=== PATIENT | female | born 1950 | race Caucasian/White ===

== ENCOUNTER 2017-10-22 13:09 | Outpatient (CLI) | payer MEDICARE, MEDICAID | END 2017-10-22 13:10 | disposition home or self-care (01) | LOC: BICMAMMO 13:09 | PROVIDERS: ATTEND Family Medicine | DX: Z12.31 Encounter for screening mammogram for malignant neoplasm of breast (principal) | CPT/HCPCS: 77063; 77067 ==

== ENCOUNTER 2018-11-03 09:17 | Outpatient (CLI) | payer MEDICARE ==
--- NOTE | 2018-11-03 10:00 | MMO ---
Bilateral MAMMO Bilat Screen [facility]. CLINICAL HISTORY: Patient is 68 years old and is seen for screening. The patient has no family history of breast cancer. The patient has no personal history of cancer. VIEWS: The views performed were: bilateral craniocaudal with tomosynthesis and bilateral mediolateral oblique with tomosynthesis. FILMS COMPARED: The present examination has been compared to a prior imaging study performed at [facility] on 10/22/2017. MAMMOGRAM FINDINGS: There are scattered fibroglandular densities. There are benign appearing calcifications seen in both breasts. There are no suspicious masses, suspicious calcifications, or new areas of architectural distortion. IMPRESSION: THERE IS NO MAMMOGRAPHIC EVIDENCE OF MALIGNANCY. A ROUTINE FOLLOW-UP MAMMOGRAM IN 1 YEAR IS RECOMMENDED. THE RESULTS OF THIS EXAM WERE SENT TO THE PATIENT. ACR BI-RADS Category 2 - Benign finding MAMMOGRAPHY NOTE: 1. A negative mammogram report should not delay a biopsy if a dominant of clinically suspicious mass is present. 2. Approximately 10% to 15% of breast cancers are not detected by mammography. 3. Adenosis and dense breasts may obscure an underlying neoplasm.
== END 2018-11-03 09:18 | disposition home or self-care (01) ==
LOC: BICMAMMO 09:17
PROVIDERS: ATTEND Family Medicine
DX: Z12.31 Encounter for screening mammogram for malignant neoplasm of breast (principal)
CPT/HCPCS: 77063; 77067

== ENCOUNTER 2019-07-27 09:04 | Outpatient (CLI) | payer MEDICARE ==
--- NOTE | 2019-07-27 09:44 | ULT ---
RIGHT UPPER QUADRANT ULTRASOUND: HISTORY: Elevated LFTs. FINDINGS: The liver demonstrates increased echogenicity consistent with fatty infiltration without focal mass o r intrahepatic ductal dilatation. There is a 2.3 cm shadowing calculus in the gallbladder without ga llbladder wall thickening or pericholecystic fluid. The common duct measures 4 mm in diameter. The right kidney and visualized portions of the pancreas are unremarkable. No free fluid is seen in the Morison's pouch. IMPRESSION: 1. Fatty liver. 2. Cholelithiasis. POS: OFF
== END 2019-07-27 09:05 | disposition home or self-care (01) ==
LOC: BICULT 09:04
PROVIDERS: ATTEND Family Medicine
DX: R74.0 Nonspecific elevation of levels of transaminase and lactic acid dehydrogenase [LDH] (principal); K76.0 Fatty (change of) liver, not elsewhere classified; K80.20 Calculus of gallbladder without cholecystitis without obstruction
CPT/HCPCS: 76705

== ENCOUNTER 2019-09-03 10:37 | Day surgery (SDC) | payer MEDICARE ==
[2019-09-02 10:37] VITALS: BMI 30.7
[2019-09-03] MEDS ORDERED: PHENYLEPHRINE-NS 100 MCG/ML 10 ML SYRINGE ONE (10:42)
[2019-09-03] MEDS ORDERED: Glycopyrrolate 0.2 MG/ML 5 ML SYRINGE ONE (10:42)
[2019-09-03] MEDS ORDERED: PROPOFOL 200 MG/20 ML VIAL ONE (10:42)
[2019-09-03] MEDS ORDERED: Dexamethasone 20 MG/5 ML VIAL ONE (10:42)
[2019-09-03] MEDS ORDERED: Rocuronium Bromide 10 MG/ML (10ML VIAL) ONE (10:42)
[2019-09-03] MEDS ORDERED: Esmolol 100 MG/10 ML VIAL ONE ×2 (10:42→14:17)
[2019-09-03] MEDS ORDERED: Lidocaine 1% PF 5 ML VIAL ONE (10:42)
[2019-09-03] MEDS ORDERED: Ondansetron PF 4 MG/2 ML Vial ONE (10:42)
[2019-09-03] MEDS ORDERED: EPHEDRINE 25 MG/5 ML SYRINGE ONE (10:42)
[2019-09-03] MEDS ORDERED: Acetaminophen 500 MG TAB ONE (10:59)
[2019-09-03] MEDS ORDERED: Ketorolac Tromethamine 30 MG/ML VIAL ONE (11:04)
[2019-09-03] MEDS ORDERED: Levofloxacin 500 mg/D5W 100 ml Premix Bag ONE (11:04)
[2019-09-03 11:28] LABS: #Basophils 0.1 thou/uL (0.0-0.2); #Eosinphils 0.1 thou/uL (0.0-0.7); #Lymphocytes 1.6 thou/uL (1.20-3.40); #Monocytes 0.4 thou/uL (0.11-0.59); #Neutrophils 3.1 thou/uL (1.40-6.50); %Eosinophils 1.8 % (0.0-10.0); %Lymphocytes 30.8 % (21.0-51.0); %Monocytes 8.1 % (0.0-10.0); %Neutrophils 58.3 % (42.0-75.0); Hemoglobin 14.3 g/dL (12.0-16.0); Mean Corpuscular HGB CONC 34.2 g/dL (32.0-36.0); Mean Corpuscular Hemoglobin 29.3 pg (27.0-31.0); Mean Corpuscular Volume 85.9 fL (78.0-98.0); Mean Platelet Volume 8.6 fL (7.4-10.4); Platelet Count 150 thou/uL (130-400); RBC Distribution Width 12.9 % (11.5-14.5); Red Blood Cell (RBC) Count 4.86 mill/uL (4.20-5.40); White Blood Cell (WBC) Count 5.3 thou/uL (4.8-10.8)
[2019-09-03] MEDS ORDERED: Lidocaine 1% w/Epinephrine 1:100K 20 ML VIAL ONE (11:45)
[2019-09-03] MEDS ORDERED: Bupivacaine 0.25% HCL 30 ML VIAL ONE (11:45)
[2019-09-03 11:56] LABS: ALT (SGPT) 65 U/L (8-55); AST (SGOT) 50 U/L (5-34); Albumin 4.1 g/dL (3.4-4.8); Alkaline Phosphatase 93 U/L (40-110); Anion Gap 12 mmol/L (10-20); BUN (Urea Nitrogen) 14 mg/dL (9.8-20.1); Bilirubin, Total 0.8 mg/dL (0.2-1.2); Calc. Creatinine Clearance 94 mL/min (70-130); Calcium 9.4 mg/dL (7.8-10.44); Carbon Dioxide 26 mmol/L (23-31); Chloride 105 mmol/L (98-107); Estimated GFR-MDRD 74; Globulin 3.3 g/dL (2.4-3.5); Glucose 97 mg/dL (80-115); Potassium 4.1 mmol/L (3.5-5.1); Protein, Total 7.4 g/dL (6.0-8.3); Sodium 139 mmol/L (136-145)
--- NOTE | 2019-09-03 12:10 | RAD ---
PORTABLE CHEST: History: Pre-operative evaluation. FINDINGS: The lung cast are clear. No infiltrate or vascular congestion. Heart size is normal. Degenerative changes at both shoulders. IMPRESSION: No acute process. POS: [facility]
[2019-09-03] MEDS ORDERED: Fentanyl 250 MCG/5 ML VIAL ONE (12:24)
[2019-09-03] MEDS ORDERED: SUGAMMADEX SODIUM 500 MG/5 ML VIAL ONE (14:32)
[2019-09-03] MEDS ORDERED: SUGAMMADEX SODIUM 200 MG/2 ML VIAL ONE (14:34)
--- NOTE | 2019-09-05 21:34 | OP ---
DATE OF PROCEDURE: 09/03/2019 PREOPERATIVE DIAGNOSIS: Symptomatic cholelithiasis. POSTOPERATIVE DIAGNOSIS: Symptomatic cholelithiasis. PROCEDURE PERFORMED: Laparoscopic cholecystectomy. ANESTHESIA: General endotracheal. INDICATIONS FOR PROCEDURE: The patient is a 69-year-old white female. Recent gallbladder ultrasound documents a large gallstone present within her gallbladder. She has taken to the operative room at this time for laparoscopic cholecystectomy. DESCRIPTION OF PROCEDURE: Informed consent was obtained. The patient was taken to the operating room where general endotracheal anesthesia was obtained with the patient in the supine position. The abdomen was prepped with Betadine and draped in the usual sterile fashion. 0.25% Marcaine with epinephrine was infiltrated below the umbilicus and a 10 mm infraumbilical incision was created. A Veress needle was passed through this incision into the peritoneal cavity. A pneumoperitoneum was established using carbon dioxide up to a pressure of 15 mmHg. Local anesthetic was infiltrated and 3 additional 5 mm right upper quadrant incisions were created. Through the mid incision, a 5 mm port was passed into the peritoneal cavity. The camera was passed through this port and under direct vision, an 11 port was passed through the infraumbilical incision. The camera was replaced through this port, and under direct vision, 2 additional 5 mm ports were passed through the incisions already created. The gallbladder was grasped and retracted in a cephalad direction. Minimal adhesions were bluntly stripped away from the apex of the gallbladder, and the apex was retracted laterally and inferiorly. Careful dissection was carried out to the apex of the gallbladder to identify the cystic duct and cystic artery. These were each carefully dissected circumferentially. The duct was of normal caliber. Both the duct and the artery were divided between clips, leaving 2 on the side to remain within the abdomen. The gallbladder was then dissected out of the gallbladder fossa using electrocautery and removed through the infraumbilical port site. The fascia was closed with 0 Vicryl suture and a GraNee needle. The right upper quadrant was inspected and irrigated. All irrigant was aspirated. All ports and instruments were removed under direct vision. Pneumoperitoneum was carefully evacuated. Additional local anesthetic was infiltrated into each port site. The skin edges were approximated with 4-0 Monocryl subcuticular sutures, and Dermabond was placed externally. There were no complications. The patient tolerated the procedure well and was taken to the recovery room in stable condition. FINDINGS: The patient had evidence of chronic cholecystitis with significant scarring around the apex of the gallbladder and pericholecystic adhesions. The duct was small and noninflamed when it was fully dissected. There were no complications. Blood loss was negligible. The patient tolerated the procedure well and was taken to recovery in stable condition. Job ID: [id number]
== END 2019-09-03 16:35 | disposition home or self-care (01) ==
LOC: SDC 10:37
PROVIDERS: ATTEND Specialist
PROC: 0FT44ZZ Resection of Gallbladder, Percutaneous Endoscopic Approach (ICD-10-PCS; principal; 2019-09-03)
DX: K80.10 Calculus of gallbladder with chronic cholecystitis without obstruction (principal); K82.8 Other specified diseases of gallbladder; Z79.899 Other long term (current) drug therapy; Z88.0 Allergy status to penicillin
CPT/HCPCS: 71045; 80053; 85025; 88304; 93005; 93010; J1100; J1885; J1956; J2001; J2405; J2704; J3010; S0020

== ENCOUNTER 2021-05-28 09:04 | Outpatient (CLI) | payer MEDICARE, MEDICAID | END 2021-05-28 09:05 | disposition home or self-care (01) | LOC: BICMAMMO 09:04 | PROVIDERS: ATTEND Family Medicine | DX: Z12.31 Encounter for screening mammogram for malignant neoplasm of breast (principal) | CPT/HCPCS: 77063; 77067 ==

== ENCOUNTER 2022-02-14 09:52 | Outpatient (CLI) | payer MEDICARE, MEDICAID ==
[2022-02-14 12:17] LABS: #Eosinphils 0.2 10x3/uL (0.0-0.5); #Monocytes 0.4 10x3/uL (0.0-1.1); #Neutrophils 3.1 10x3/uL (1.5-8.4); %Basophils 0.4 % (0.0-2.0); %Eosinophils 2.8 % (0.0-6.0); %Lymphocytes 32.4 % (18.0-47.0); %Monocytes 7.9 % (0.0-10.0); %Neutrophils 56.1 % (40.0-75.0); Hemoglobin 13.6 g/dL (12.0-15.5); Mean Corpuscular HGB CONC 32.3 g/dL (32.0-36.0); Mean Corpuscular Hemoglobin 28.3 pg (27.0-33.0); Mean Corpuscular Volume 87.5 fl (81.6-98.3); Mean Platelet Volume 10.9 fl (7.4-10.4); Platelet Count 189 10x3/uL (150-450); RBC Distribution Width 13.5 % (11.5-14.5); Red Blood Cell (RBC) Count 4.81 10x6/uL (3.90-5.03); White Blood Cell (WBC) Count 5.4 10x3/uL (3.5-10.5)
[2022-02-14 12:19] LABS: INR-International Normal Ratio 0.9; Prothrombin Time 9.9 sec (9.5-12.1)
[2022-02-14 12:25] LABS: Anion Gap 14 mmol/L (10-20); BUN (Urea Nitrogen) 8 mg/dL (9.8-20.1); Calc. Creatinine Clearance 0 mL/min (70-130); Calcium 9.2 mg/dL (7.8-10.44); Carbon Dioxide 25 mmol/L (23-31); Chloride 107 mmol/L (98-107); Estimated GFR 78; Glucose 73 mg/dL (83-110); Potassium 4.5 mmol/L (3.5-5.1); Sodium 141 mmol/L (136-145)
== END 2022-02-14 09:53 | disposition home or self-care (01) ==
LOC: LABBT 09:52
PROVIDERS: ATTEND Orthopaedic Surgery
DX: Z01.818 Encounter for other preprocedural examination (principal); M17.11 Unilateral primary osteoarthritis, right knee; Z20.822 Contact with and (suspected) exposure to COVID-19
CPT/HCPCS: 80048; 85025; 85610; 87081; 87811; 93005; 93010

== ENCOUNTER 2022-02-19 05:36 | Observation (INO) | payer OTHER, MEDICAID ==
[2022-02-15 14:07] VITALS: BMI 30.7
[2022-02-19] MEDS ORDERED: Sodium Chloride 0.9% 100 ML ONE ×2 (06:02→06:51)
[2022-02-19] MEDS ORDERED: Vancomycin (BATCH) 1.5 GRAM/300 ML BAG ONE (06:02)
[2022-02-19] MEDS ORDERED: Tranexamic Acid 1,000 MG/10 ML VIAL ONE (06:02)
[2022-02-19] MEDS ORDERED: fentaNYL Citrate/PF 100 MCG/2 ML SYRINGE ONE (06:13)
[2022-02-19] MEDS ORDERED: Meperidine HCl/PF 25 MG/ML VIAL SLOW IVP PRN ×2 (06:40)
[2022-02-19] MEDS ORDERED: Ondansetron HCl/PF 4 MG/2 ML Vial IVP PRN (06:40)
[2022-02-19] MEDS ORDERED: Promethazine HCl 25 MG/ML VIAL IM PRN ×3 (06:40→07:30)
[2022-02-19] MEDS ORDERED: Promethazine HCl 25 MG/ML VIAL IVPB PRN (06:40)
[2022-02-19] MEDS ORDERED: HYDROmorphone 2 MG/ML VIAL SLOW IVP PRN (06:40)
[2022-02-19] MEDS ORDERED: Midazolam HCl 2 mg/2 ml Vial ONE (06:45)
[2022-02-19] MEDS ORDERED: Fentanyl 100 MCG/2 ML VIAL ONE ×3 (06:45→09:24)
[2022-02-19] MEDS ORDERED: Bupivacaine PF 0.5% 30 ML VIAL ONE (06:51)
[2022-02-19] MEDS ORDERED: CEFAZOLIN 2 GM VIAL ONE (06:51)
[2022-02-19] MEDS ORDERED: Acetaminophen 325 MG TAB PO PRN (06:57)
[2022-02-19] MEDS ORDERED: HYDROcodone/Acetaminophen 10/325 mg Tablet PO PRN ×3 (06:57→07:30)
[2022-02-19] MEDS ORDERED: diphenhydrAMINE 25 MG CAP PO PRN (06:57)
[2022-02-19] MEDS ORDERED: Zolpidem Tartrate 5 MG TAB PO PRN ×2 (06:57→07:30)
[2022-02-19] MEDS ORDERED: Ondansetron PF 4 MG/2 ML Vial IVP PRN ×2 (06:57→07:30)
[2022-02-19] MEDS ORDERED: Fentanyl 100 MCG/2 ML VIAL SLOW IVP PRN ×2 (06:57)
[2022-02-19] MEDS ORDERED: ceFAZolin 2 GM/Dextrose 50 ML 2 GM in Premix Bag 1 BAG IVPB SCH (07:00)
[2022-02-19] MEDS ORDERED: PROPOFOL 200 MG/20 ML VIAL ONE (07:02)
[2022-02-19] MEDS ORDERED: Ondansetron PF 4 MG/2 ML Vial ONE (07:02)
[2022-02-19] MEDS ORDERED: Dexamethasone 20 MG/5 ML VIAL ONE (07:02)
[2022-02-19] MEDS ORDERED: Lidocaine 1% PF 5 ML VIAL ONE (07:02)
[2022-02-19] MEDS ORDERED: Ketorolac Tromethamine 30 MG/ML VIAL ONE (07:02)
[2022-02-19] MEDS ORDERED: Bupivacaine HCl 0.5%/Epinephrine 1:200,000/PF 30 ml Vial ONE ×2 (07:02)
[2022-02-19] MEDS ORDERED: Fentanyl 100 MCG/2 ML VIAL IV PRN (07:16)
[2022-02-19] MEDS ORDERED: traMADol HCl 50 MG TAB PO PRN ×2 (07:30)
[2022-02-19] MEDS ORDERED: Ropivacaine 0.2% 550 ML 550 ML NERVE BLCK SCH (07:30)
[2022-02-19] MEDS ORDERED: Non-Formulary Item 1 EACH (Cholecalciferol (Vitamin D3) [Vitamin D] 1000 UNIT Capsule) PO SCH (09:00)
[2022-02-19] MEDS ORDERED: HYDROmorphone 0.5 MG/0.5 ML SYRINGE ONE (09:04)
[2022-02-19] MEDS: Ferrous Gluconate 324 MG TAB PO SCH ×2 (10:21→20:04)
[2022-02-19] MEDS: Cholecalciferol 1,000 UNITS (25 MCG) TAB PO SCH (10:21)
[2022-02-19] MEDS: Aspirin 81 mg Enteric Coated Tablet PO SCH ×2 (10:21→20:04)
[2022-02-19] MEDS: Multivitamin W/ Minerals 1 TAB PO SCH (10:21)
[2022-02-19] MEDS: Senokot S 8.6-50 MG TAB PO SCH ×2 (10:21→20:04)
[2022-02-19] MEDS: Sodium Chloride 0.9% 1,000 ML IV SCH ×3 (10:22→21:09)
[2022-02-19] MEDS: Ketorolac Tromethamine 30 MG/ML VIAL IVP SCH ×2 (11:01→17:35)
[2022-02-19] MEDS: CEFAZOLIN 2 GM in Sodium Chloride 0.9% 100 ML IVPB SCH ×2 (13:23→20:56)
[2022-02-19] MEDS: HYDROcodone/Acetaminophen 10/325 mg Tablet PO PRN (13:27)
[2022-02-19] MEDS ORDERED: Ketorolac Tromethamine 30 MG/ML VIAL IVP SCH (14:00)
[2022-02-20] MEDS: Ketorolac Tromethamine 30 MG/ML VIAL IVP SCH ×2 (00:33→07:10)
[2022-02-20 08:46] VITALS: BP 109/72; TEMP 97.6
[2022-02-20] MEDS: Ferrous Gluconate 324 MG TAB PO SCH (08:55)
[2022-02-20] MEDS: Senokot S 8.6-50 MG TAB PO SCH (08:55)
[2022-02-20] MEDS: Multivitamin W/ Minerals 1 TAB PO SCH (08:55)
[2022-02-20] MEDS: Aspirin 81 mg Enteric Coated Tablet PO SCH (08:56)
[2022-02-20] MEDS: Sodium Chloride 0.9% 1,000 ML IV SCH (08:56)
[2022-02-20] MEDS: Cholecalciferol 1,000 UNITS (25 MCG) TAB PO SCH (08:56)
[2022-02-20] MEDS: HYDROcodone/Acetaminophen 10/325 mg Tablet PO PRN (08:57)
[2022-02-20 09:55] LABS: Hemoglobin 11.4 g/dL (12.0-16.0); Mean Corpuscular HGB CONC 32.4 g/dL (32.0-36.0); Mean Corpuscular Hemoglobin 29.5 pg (27.0-31.0); Mean Corpuscular Volume 90.9 fL (78.0-98.0); Mean Platelet Volume 6.2 fL (7.4-10.4); Platelet Count 153 thou/uL (130-400); RBC Distribution Width 12.6 % (11.5-14.5); Red Blood Cell (RBC) Count 3.86 mill/uL (4.20-5.40); White Blood Cell (WBC) Count 9.4 thou/uL (4.8-10.8)
== END 2022-02-20 11:00 | disposition home or self-care (01) ==
LOC: SDC 05:36 → SJJU 06:57 → SDC 17:14
PROVIDERS: ADMIT Orthopaedic Surgery; ATTEND Orthopaedic Surgery
PROC: 0SRC0J9 Replacement of Right Knee Joint with Synthetic Substitute, Cemented, Open Approach (ICD-10-PCS; principal; 2022-02-19)
PROC: 8E0YXBZ Computer Assisted Procedure of Lower Extremity (ICD-10-PCS; 2022-02-19)
PROC: 3E0T3BZ Introduction of Anesthetic Agent into Peripheral Nerves and Plexi, Percutaneous Approach (ICD-10-PCS; 2022-02-19)
DX: M17.11 Unilateral primary osteoarthritis, right knee (principal); Z88.0 Allergy status to penicillin
CPT/HCPCS: 20985; 27447; 64448; 73560; 85027; 97110 ×2; 97116 ×2; 97530; A4306; J3370; 36415; C1713; C1776; J0690; J1100; J1170; J1885; J2250; J2405; J2704; J2795; J3010; J3490; J7050; S0020

== ENCOUNTER 2022-05-29 10:48 | Outpatient (CLI) | payer OTHER, MEDICAID | END 2022-05-29 10:49 | disposition home or self-care (01) | LOC: BICMAMMO 10:48 | PROVIDERS: ATTEND Family Medicine | DX: Z12.31 Encounter for screening mammogram for malignant neoplasm of breast (principal) | CPT/HCPCS: 77063; 77067 ==

== ENCOUNTER 2023-06-16 10:59 | Outpatient (CLI) | payer MEDICAID, MEDICARE, OTHER | END 2023-06-16 11:00 | disposition home or self-care (01) | LOC: BICMAMMO 10:59 | PROVIDERS: ATTEND Family Medicine | DX: Z12.31 Encounter for screening mammogram for malignant neoplasm of breast (principal) | CPT/HCPCS: 77063; 77067 ==

== ENCOUNTER 2024-06-30 12:36 | Outpatient (CLI) | payer MEDICARE | END 2024-06-30 12:37 | disposition home or self-care (01) | LOC: BICMAMMO 12:36 | PROVIDERS: ATTEND Family Medicine | DX: Z12.31 Encounter for screening mammogram for malignant neoplasm of breast (principal) | CPT/HCPCS: 77063; 77067 ==

== ENCOUNTER 2024-06-30 14:51 | Outpatient (CLI) | payer MEDICARE | END 2024-06-30 14:52 | disposition home or self-care (01) | LOC: SCSRAD 14:51 | PROVIDERS: ATTEND Family Medicine | DX: R05.1 Acute cough (principal); J98.01 Acute bronchospasm; R06.00 Dyspnea, unspecified; R91.8 Other nonspecific abnormal finding of lung field | CPT/HCPCS: 71046 ==

== ENCOUNTER 2025-07-06 14:21 | Outpatient (CLI) | payer OTHER | END 2025-07-06 14:22 | disposition home or self-care (01) | LOC: SCSRAD 14:21 | PROVIDERS: ATTEND Specialist | DX: J44.1 Chronic obstructive pulmonary disease with (acute) exacerbation (principal) | CPT/HCPCS: 71046 ==